=== PATIENT | female | born 2000 | race Two or more races ===

== ENCOUNTER 2018-06-03 07:09 | Emergency (ER) | payer OTHER ==
[2018-06-03 07:24] LABS: URINE HCG POC HCG POSITIVE (Negative)
[2018-06-03 07:28] LABS: BILIRUBIN,URINE NEGATIVE (NEG); CLARITY,URINE CLEAR; COLOR,URINE YELLOW; GLUCOSE,URINE NEGATIVE (NEG); NITRITE,URINE NEGATIVE (NEG); PH,URINE 7.5; PROTEIN,URINE NEGATIVE (NEG-TRACE); UROBILINOGEN,URINE 0.2 mg/dL (0.2 mg/dL)
[2018-06-03 07:33] LABS: AMORPHOUS SEDIMENT,UR PRESENT /HPF; BACTERIA,URINE MOD /HPF (0-FEW); SQUAMOUS EPITHELIAL CELL,UR MOD /LPF
== END 2018-06-03 09:04 | disposition home or self-care (01) ==
LOC: ER 07:09
DX: O26.891 Other specified pregnancy related conditions, first trimester (principal); R10.2 Pelvic and perineal pain; O99.511 Diseases of the respiratory system complicating pregnancy, first trimester; J45.909 Unspecified asthma, uncomplicated; Z90.89 Acquired absence of other organs; Z3A.01 Less than 8 weeks gestation of pregnancy
CPT/HCPCS: 36415; 76805; 76817; 81001; 81025; 84702; 99285-25

== ENCOUNTER 2018-06-14 16:03 | Emergency (ER) | payer OTHER ==
[~2018-06-14] VITALS: Ht 154.9 cm; Wt 43.1 kg
[~2018-06-14 16:03] MED LIST: NITR100C62 PO; PNV1TABL25 PO
[2018-06-14 16:51] VITALS: BP 105/71
== END 2018-06-14 17:50 | disposition left against medical advice (07) ==
LOC: ER 16:03
DX: O21.9 Vomiting of pregnancy, unspecified (principal); R10.30 Lower abdominal pain, unspecified; R11.0 Nausea; Z53.21 Procedure and treatment not carried out due to patient leaving prior to being seen by health care provider